=== PATIENT | female | born 1955 | race Caucasian/White ===

== ENCOUNTER 2016-10-15 17:25 | Emergency (ER) | payer OTHER ==
[~2016-10-15] VITALS: Ht 177.8 cm; Wt 59.0 kg
[2016-10-15] MEDS ORDERED: NORCO 5-325 TA1 EACH ORAL (19:10)
[2016-10-15] MEDS ORDERED: Norco 5mg/325mg tab ORAL ONE (19:15)
[2016-10-15 19:25] VITALS: BP 92/52
--- NOTE | 2016-10-15 22:13 | Emergency Room Report ---
History of Present Illness General Chief Complaint: Lower Extremity Injury Source: Patient Present Illness HPI Patient is a 61-year-old female presented after increased knee pain. The patient increased pain after a recent fall. The patient stated she slipped in the parking lot. She reported having pain to the area below her left knee as well as to her left ankle. She had been able to bear weight somewhat. The patient denied any fever. Allergies: Coded Allergies: No Known Allergies (Unverified , 10/15/16) Patient History Past Medical History: see triage record Reviewed Nursing Documentation: PMH: Agreed, PSxH: Agreed Nursing Documentation-PM Past Medical History: No History, Except For Hx Hypertension: Yes History Of Psychiatric Problem: Yes - PTSD, PANIC ATTACKS, Review of Systems All Other Systems: negative except mentioned in HPI Physical Exam Vital Signs Date Time Temp Pulse Resp B/P Pulse Ox O2 Delivery O2 Flow Rate FiO2 10/15/16 17:40 97.9 80 20 92/52 100 Room Air Sp02 EP Interpretation: reviewed, normal General Appearance: normal inspection, well appearing, no apparent distress, alert Head: atraumatic ENT: normal ENT inspection, hearing grossly normal, normal voice Neck: normal inspection, full range of motion, supple, no bony tend Respiratory: normal inspection, lungs clear, normal breath sounds, no respiratory distress, no retraction, no wheezing Cardiovascular #1: regular rate, rhythm, no edema Gastrointestinal: normal inspection, normal bowel sounds, non tender, soft, no guarding, no hernia Genitourinary: no CVA tenderness Musculoskeletal: back normal, normal range of motion, swelling Neurologic: normal inspection, alert, oriented x3, responsive, speech normal Psychiatric: normal inspection, judgement/insight normal, mood/affect normal Skin: no rash Medical Decision Making Diagnostic Impression: Primary Impression: Knee contusion Additional Impression: Ankle sprain ER Course Patient presented for extremity pain. Differential diagnosis included but was not limited to fracture, contusion, vascular insufficiency, aortic aneurysm, cellulitis. The x-ray imaging of the left knee and was ordered due to patient' s recent trauma as well as left ankle. X-ray imaging 3 views of the knee interpreted by me showed soft tissue swelling without fracture. X-ray of the left ankle previous and rhythm me showed soft tissue swelling without fracture or dislocation. Patient was placed in a knee immobilizer. She is given crutches.The patient is advised to follow up with primary care doctor. Patient is advised to return if any worsening condition or if any changes in status that are concerning. Last Vital Signs Date Time Temp Pulse Resp B/P Pulse Ox O2 Delivery O2 Flow Rate FiO2 10/15/16 19:25 97.9 20 92/52 100 Room Air 10/15/16 17:40 80 Status: improved Disposition: HOME, SELF-CARE Condition: Stable Scripts Hydrocodone Bit/Acetaminophen 5-325* (NORCO 5-325*) 1 Each Tablet 1 TAB ORAL Q6H Y for For Pain, #10 TAB 0 Refills Prov: Tim Dugan 10/15/16 Patient Instructions: Knee Pain, Ankle Sprain Tim Dugan October 15, 2016 22:13
--- NOTE | 2016-10-16 10:34 | Diagnostic Imaging Report ---
Indication: Pain Comparison: None Findings: 3 views of the left ankle obtained. No acute fracture, malalignment, periostitis, or osteochondral defects are identified. Soft tissues are unremarkable. Impression: No acute findings
--- NOTE | 2016-10-16 12:47 | Diagnostic Imaging Report ---
Indication: Pain 3 views of the left knee were obtained. Findings: No acute fracture, malalignment, or joint effusion are identified. Joint space is relatively well-maintained. Bone mineralization is diffusely decreased. Impression: No acute fracture.
== END 2016-10-15 19:25 | disposition home or self-care (01) ==
LOC: EMR 18:16
DX: S80.02XA Contusion of left knee, initial encounter (principal); S93.402A Sprain of unspecified ligament of left ankle, initial encounter; W01.0XXA Fall on same level from slipping, tripping and stumbling without subsequent striking against object, initial encounter; Y93.9 Activity, unspecified; Y92.481 Parking lot as the place of occurrence of the external cause; I10 Essential (primary) hypertension; Z86.59 Personal history of other mental and behavioral disorders
CPT/HCPCS: 29530; 99283